=== PATIENT | female | born 1985 | race Caucasian/White ===

== ENCOUNTER 2018-02-16 10:47 | Emergency (ER) | payer OTHER ==
[2018-02-16 10:56] VITALS: BMI 31.1
--- NOTE | 2018-02-16 11:08 | PDOC ---
History of Present Illness - General Chief Complaint: Vaginal Bleeding Stated Complaint: STOIMACH PAIN Time Seen by Provider: 02/16/18 10:59 - History of Present Illness Initial Comments: 02/16/18 11:57 Sapna Bowie is an otherwise healthy 32yo woman who presents with vaginal bleeding and lower abdominal pain since yesterday afternoon. She reports that she had a positive test last week and is likely about 6 weeks . Her LMP was January 02-. Prior to last month, she was taking oral control pills for years. She reports that her period was very regular while taking the pills, and she has not had any menstrual problems in the past. She did have a yeast infection recently with vaginal itching, but she reports that she was prescribed a medication that she has now completed. Her symptoms resolved, and she denies any current abnormal vaginal discharge, itching, pain or odor prior to the current bleeding. She does have one daughter , age 8y, and has not been since that time. Ms Rommel Bowie denies any additional symptoms including fever/chills, lightheadedness, chest pain, SOB, or injury. She requests a sonogram and blood test to confirm her . Past History - Past Medical History Allergies/Adverse Reactions: Allergies Allergy/AdvReac Type Severity Reaction Status Date / Time No Known Allergies Allergy Verified 02/16/18 10:51 Home Medications: Ambulatory Orders Acetaminophen 1,000 mg PO TID PRN #20 tablet 02/16/18 - Suicide/Smoking/Psychosocial Hx Smoking History: Never smoked Hx Alcohol Use: No Drug/Substance Use Hx: No Review of Systems - Review of Systems Comments:: 02/16/18 11:09 General: No fevers, no chills, no weight or appetite change, no malaise HEENT: No changes in vision, no changes in hearing, no congestion, no sore throat CV: No chest pain, no palpitations, no LE edema Pulm: No SOB, no cough, no wheezing GI: No nausea or vomiting, no change in bowel habits, no melena : No frequency, no urgency, no dysuria Musc: No back pain, no joint swelling, no recent injury Skin: No rash, no lesions, no erythema Endo: No excessive thirst, no heat/cold intolerance Heme: No unusual bruising or bleeding, no swollen glands Neuro: No syncope, no numbness/tingling, no focal weakness Vasc: No claudication Psych: No recent change in mood, no SI or HI *Physical Exam - Vital Signs Last Vital Signs Temp Pulse Resp BP Pulse Ox 99.1 F 89 16 131/82 99 02/16/18 10:53 02/16/18 10:53 02/16/18 10:53 02/16/18 10:53 02/16/18 10:53 - Physical Exam Comments: 02/16/18 11:09 General: Comfortable, no acute distress HEENT: PERRL, EOMI, MMM, voice normal, normal neck ROM, no LAD Cards: RRR, no murmur appreciated Pulm: Comfortable on room air, clear to auscultation bilaterally Abd: Soft, nontender, nondistended : No CVA tenderness Pelvic: External exam without any lesions, blood noted at vaginal canal. Moderate blood in vaginal canal. Poorly visualized cervix but no obvious cervical opening. No cervical motion tenderness, no palpable cervical opening on manual exam. Ext: Atraumatic. No LE edema. ROM intact. Strength 5/5 and equal bilaterally Vasc: Extremities WWP. Palpable radial and pedal pulses bilaterally Neuro: A&Ox3, CN grossly intact, normal speech, motor/sensory grossly intact and symmetric Psych: Mood appropriate to situation ED Treatment Course - LABORATORY CBC & Chemistry Diagram: 02/16/18 11:56 02/16/18 11:25 Medical Decision Making - Medical Decision Making 02/16/18 12:15 Sapna Bowie is an otherwise healthy 32yo woman who presents with vaginal bleeding and lower abdominal pain since yesterday; she had a positive urine test at home and reports that she is approximatley 6 weeks with her LMP in early december. - Bleeding may represent a spontaneous . Quantitive HCG pending - CBC, CMP, UA, UCx, urine , Type and screen pending - Transvaginal ultrasound ordered - concern for ectopic - Pelvic exam notable for blood in vaginal canal, but otherwise unremarkable - NS for hydration; IV tylenol for pain 02/16/18 13:47 - Labs returned without indication of infection or anemia, UA negative. Type& Screen pending - Urine positive - HCG 35 - Transvaginal ultrasound with prominent endometrium but no intrauterine ; per report, could indicate very early but ectopic must still be considered - Plan to discharge home with instructions regarding ectopic and reasons to return to the ED. Ms Rommel Bowie will need to be seen in the ED or [facility] for serial HCG monitoring and a repeat ultrasound in 2 days. Will discuss with patient. Waiting for type&screen to determine need for rhogam prior to discharge. 02/16/18 14:47 - Type&Screen returned, blood type O+ - Discussed ectopic and spontaneous with patient and her . They understand the need to return in 2 days for repeat quantitative HCG and repeat ultrasound. Will provide written information in [place] to take home. - Plan to discharge with follow up in [address] Goel. *DC/Admit/Observation/Transfer Diagnosis at time of Disposition: Vaginal bleeding affecting early - Discharge Dispostion Disposition: HOME - Prescriptions Prescriptions: Acetaminophen 1,000 mg PO TID PRN #20 tablet PRN Reason: Pain - Referrals Referrals: Pita Cordova MD [Primary Care Provider] - - Patient Instructions Printed Discharge Instructions: DI for Ectopic , DI for Miscarriage, DI for Threatened Additional Instructions: Instructions: - You were seen in the ED today for vaginal bleeding in early . There was no seen on ultrasound, but your test was positive. - This could be either a possible miscarriage, completed miscarriage, ectopic . - Please return to the ED on Monday or Monday for repeat blood tests and a repeat ultrasound. You may also go to a clinic such as [facility] for these tests. Please bring all your paperwork when you go to your appointment if you decide to go to a clinic. - If you experiece worsening of your vaginal bleeding, significantly increased abdominal pain, especially if the pain worsens acutely. You should also be seen if you have fevers to 101F or shaking chills, change in your vaginal bleeding, or you cannot get a follow up appointment. Print Language: BARBADIAN - Post Discharge Activity
[2018-02-16 11:32] LABS: HEMATOCRIT 41.9 % (32.4-45.2); HEMOGLOBIN 14.2 GM/dL (10.7-15.3); MEAN CELL VOLUME 79.4 fl (80-96); MEAN PLT VOLUME 10.2 fl (7.5-11.1); PLATELET COUNT 190 K/MM3 (134-434); RBC 5.27 M/mm3 (3.60-5.2); RDW 13.8 % (11.6-15.6); WHITE BLOOD COUNT 9.9 K/mm3 (4.0-10.0)
[2018-02-16] MEDS ORDERED: ACETAMINOPHEN 1000 MG/100 ML VIAL (NON FORMULARY) IVPB ONE (11:37)
[2018-02-16] MEDS ORDERED: SODIUM CHLORIDE 0.9% 1000 ML INFUS.BAG IV ONE (11:37)
--- NOTE | 2018-02-16 11:37 | PDOC ---
Attending Attestation - HPI HPI: 02/16/18 12:15 The patient is a 32y year old female, approximately 6 weeks , with no significant past medical history, who presents with vaginal bleeding and lower abdominal pain since yesterday afternoon. She reports her LMP was January 02. She reports that her period was very regular while taking control pills which she reportedly stopped taking a few months ago. She has one daughter, age 8, and has not been since that time. The patient denies chest pain, shortness of breath, headache and dizziness. The patient denies fever, chills, nausea, vomit, diarrhea and constipation. The patient denies dysuria, frequency, urgency and hematuria. <Cristina Garay - Last Filed: 02/16/18 12:15> - Resident Resident Name: Veronika Garcia - ED Attending Attestation I have performed the following: I have examined & evaluated the patient, The case was reviewed & discussed with the resident, I agree w/resident's findings & plan, Exceptions are as noted - HPI HPI: 02/16/18 13:44 6 weeks with vaginal bleeding lower abdominal discomfort No significant rebound guarding on examination We'll check labs transvaginal ultrasound observing reassessed. - Physicial Exam PE: 02/16/18 15:17 agree with residents exam - Medical Decision Making 02/16/18 16:22 No IUP noted on ultrasound. HCG 43 differential diagnosis includes ectopic versus early versus miscarriage. Patient well-appearing no apparent distress no significant abdominal pain. No evidence of ectopic on ultrasound Patient will return in 2 days for repeat sono repeat beta Very strict ectopic return instructions discussed patient. Findings, need for follow-up, strict return instructions discussed with patient. <William Goel - Last Filed: 02/16/18 16:22>
[2018-02-16 11:56] LABS: ALBUMIN 3.7 g/dl (3.4-5.0); ANION GAP 7 (8-16); BILIRUBIN,TOTAL 0.2 mg/dL (0.2-1.0); BLOOD UREA NITROGEN 10 mg/dL (7-18); CALCIUM 9.2 mg/dL (8.5-10.1); CHLORIDE 103 mmol/L (98-107); CO2 29 mmol/L (21-32); CREATININE 0.8 mg/dL (0.55-1.02); GLUCOSE,RANDOM 77 mg/dL (74-106); POTASSIUM 3.9 mmol/L (3.5-5.1); SGOT/AST 26 U/L (15-37); SGPT/ALT 25 U/L (12-78); SODIUM 139 mmol/L (136-145); TOT PROT 7.6 g/dl (6.4-8.2)
[2018-02-16] MEDS ORDERED: ACETAMINOPHEN INJECTION 100 ML IVPB ONE (11:58)
[2018-02-16 11:59] LABS: ALK PHOS 79 U/L (45-117)
[2018-02-16 12:33] LABS: BASO % 0.2 % (0-2.0); EOS % 1.1 % (0-4.5); HEMATOCRIT 41.9 % (32.4-45.2); HEMOGLOBIN 14.2 GM/dL (10.7-15.3); LYMPH % 23.6 % (8-40); MCH 27.2 pg (25.7-33.7); MEAN CELL VOLUME 80.1 fl (80-96); MEAN PLT VOLUME 10.7 fl (7.5-11.1); MONO % 5.6 % (3.8-10.2); NEUT % 69.5 % (42.8-82.8); PLATELET COUNT 188 K/MM3 (134-434); RBC 5.23 M/mm3 (3.60-5.2); RDW 13.8 % (11.6-15.6); WHITE BLOOD COUNT 9.9 K/mm3 (4.0-10.0)
[2018-02-16 12:37] LABS: HCG,QUALITATIVE URINE POSITIVE
[2018-02-16 12:41] LABS: URINE APPEARANCE CLEAR; URINE BILIRUBIN NEGATIVE (<2.0 mg/dL); URINE COLOR LTYELLOW; URINE GLUCOSE (UA) NEGATIVE (NEGATIVE); URINE KETONE NEGATIVE (NEGATIVE); URINE LEUK ESTERASE NEGATIVE (NEGATIVE); URINE NITRITE NEGATIVE (NEGATIVE); URINE PROTEIN NEGATIVE (NEGATIVE); URINE UROBILINOGEN NEGATIVE mg/dL (0.2-1.0)
[2018-02-16 13:04] LABS: EPI CELLS RARE /HPF (FEW); URINE MUCUS RARE
[2018-02-16 13:40] VITALS: BP 116/72; PULSE 79; TEMP 98.2
[2018-02-16] MEDS ORDERED: RHO(D) IMMUNE GLOBULIN 1,500 UNIT DISP.SYRIN IM ONE (14:46)
== END 2018-02-16 15:37 | disposition home or self-care (01) ==
LOC: JER 10:47
DX: O26.891 Other specified pregnancy related conditions, first trimester (principal); O20.8 Other hemorrhage in early pregnancy; Z3A.01 Less than 8 weeks gestation of pregnancy
CPT/HCPCS: 36415; 76830-TC; 80053; 81003; 81015; 84702; 84703; 85025; 85027; 86850; 86900; 86901; 87086; 99283-25; J0131; J7030

== ENCOUNTER 2019-03-28 11:48 | Emergency (ER) | payer OTHER ==
[2019-03-28 12:15] VITALS: BP 134/79; PULSE 89; TEMP 99.1; BMI 31.2
--- NOTE | 2019-03-28 12:48 | PDOC ---
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 Patient came for test and may be ultrasound. Patient has no fever, nausea, vomiting, dysuria, problems with her bowels. Patient last saw her DISHROOM ATTENDANT in May. Patient had a miscarriage last year. GENERAL/CONSTITUTIONAL: No fever, weakness. dizziness HEAD, EYES, EARS, NOSE AND THROAT: No change in vision. No ear pain or discharge. No sore throat. CARDIOVASCULAR: No chest pain RESPIRATORY: No shortness of breath or cough GASTROINTESTINAL: No pain, nausea, vomiting, diarrhea or constipation, + bloating GENITOURINARY: No dysuria MUSCULOSKELETAL: No neck or back pain SKIN: No rash NEUROLOGIC: No headache, vertigo, loss of consciousness, or loss of sensation. GENERAL: The patient is awake, alert, and fully oriented, in no acute distress. HEAD: Normal with no signs of trauma. EYES: Pupils equal, round and reactive to light, sclera anicteric, conjunctiva clear. ENT: pharynx: no erythema, no exudate, uvula midline NECK: supple CHEST: clear, nontender, rr ABD: soft, nontender BACK: no tenderness or signs of injury EXTREMITIES: Normal range of motion, no edema. NEUROLOGICAL: Normal speech, normal gait. SKIN: Warm, Dry Past History - Past Medical History Allergies/Adverse Reactions: Allergies Allergy/AdvReac Type Severity Reaction Status Date / Time No Known Allergies Allergy Verified 03/28/19 12:11 Home Medications: Ambulatory Orders Acetaminophen 1,000 mg PO TID PRN #20 tablet 02/16/18 Cephalexin [Keflex] 1,000 mg PO BID #28 capsule 03/28/19 COPD: No - Surgical History Abdominal Surgery: No Cardiac Surgery: No Cholecystectomy: No Lung Surgery: No - Immunization History Immunization Up to Date: No - Suicide/Smoking/Psychosocial Hx Smoking History: Never smoked Have you smoked in the past 12 months: No Information on smoking cessation initiated: No Hx Alcohol Use: No Drug/Substance Use Hx: No Substance Use Type: None *Physical Exam - Vital Signs Last Vital Signs Temp Pulse Resp BP Pulse Ox 99.1 F 89 17 134/79 100 03/28/19 12:11 03/28/19 12:11 03/28/19 12:11 03/28/19 12:11 03/28/19 12:11 Medical Decision Making - Medical Decision Making 03/28/19 13:54 Healthy 33-year-old G2, P1 who came into the ER asking for test and ultrasound for 4 days of bloating. She had a negative test at home yesterday afternoon. Patient has no fever, nausea, vomiting, dysuria, problems with bowels. Abdominal exam is benign, no pelvic pain. Explained to patient that we will check urine for , and will also check a UA, there is no indication for labs or further workup at this point. test is negative, patient has UTI, will treat. We'll explained to patient the need for follow-up and further evaluation Discussed issues, findings, results, applicable medications and treatments and follow-up. All these were understood and all questions were answered 03/28/19 14:02 *DC/Admit/Observation/Transfer Diagnosis at time of Disposition: UTI (urinary tract infection) Qualifiers: Urinary tract infection type: acute cystitis Hematuria presence: without hematuria Qualified Code(s): N30.00 - Acute cystitis without hematuria - Discharge Dispostion Disposition: HOME Condition at time of disposition: Stable Decision to Admit order: No - Prescriptions Prescriptions: Cephalexin [Keflex] 1,000 mg PO BID #28 capsule - Referrals Referrals: Diamante Negrete MD [Primary Care Provider] - - Patient Instructions Printed Discharge Instructions: Urinary Tract Infection Additional Instructions: Drink 2-3 L of water daily Take the Keflex 1000 mg twice a day for 7 days take Acidophilus to help prevent yeast infection or stomach upset Return ER if fever, vomiting, feeling sicker Follow-up with your doctor in 2-3 days for further evaluation of your symptoms Beber 2-3 L de agua diariamente [place] Keflex 1000 mg dos veces al da rk 7 grajeda. tome Acidophilus para ayudar a prevenir la infeccin por levaduras o malestar estomacal Regrese a la giacomo de emergencias si tiene fiebre, vmitos, se siente ms enfermo Jessica un seguimiento con gavin mdico en 2-3 grajeda para sophie evaluacin adicional de ander sntomas - Post Discharge Activity
[2019-03-28] MEDS ORDERED: MAG HYDROX/AL HYDROX/SIMETH 30 ML UNIT-DOSE CUP PO ONE (13:24)
[2019-03-28] MEDS ORDERED: MAG HYDROX/AL HYDROX/SIMETH 30 ML UNIT-DOSE CUP ONE (13:39)
[2019-03-28 13:53] LABS: HYALINE CASTS 1 /lpf (0-8); PH,URINE 5.5 (5.0-8.0); URINE APPEARANCE CLEAR; URINE BACTERIA 592.4 /hpf (NEGATIVE); URINE BILIRUBIN NEGATIVE (NEGATIVE); URINE COLOR YELLOW; URINE GLUCOSE (UA) NEGATIVE (NEGATIVE); URINE KETONE NEGATIVE (NEGATIVE); URINE LEUK ESTERASE 2+ (NEGATIVE); URINE NITRITE NEGATIVE (NEGATIVE); URINE PROTEIN NEGATIVE (NEGATIVE); URINE RBC 2 /hpf (0-4); URINE UROBILINOGEN 0.2 mg/dL (0.2-1.0); URINE WBC 35 /hpf (0-5)
== END 2019-03-28 14:30 | disposition home or self-care (01) ==
LOC: JERFT 11:48
DX: N30.00 Acute cystitis without hematuria (principal)
CPT/HCPCS: 81003; 84703; 87086; 87186; 99282-25

== ENCOUNTER 2019-10-02 13:32 | Emergency (ER) | payer OTHER ==
[2019-10-02 13:47] VITALS: BMI 32.5
[2019-10-02] MEDS ORDERED: ACETAMINOPHEN 500 MG TABLET (FP) PO ONE (14:25)
--- NOTE | 2019-10-02 14:28 | PDOC ---
History of Present Illness - General Chief Complaint: Respiratory Stated Complaint: 3 MTHS PREG COUGHING/ABD PAIN Time Seen by Provider: 10/02/19 14:13 - History of Present Illness Initial Comments: 10/02/19 14:24 34-year-old female 3 months presents for flulike symptoms x1 day Past History - Past Medical History Allergies/Adverse Reactions: Allergies Allergy/AdvReac Type Severity Reaction Status Date / Time No Known Allergies Allergy Verified 10/02/19 13:47 Home Medications: Ambulatory Orders Acetaminophen 1,000 mg PO TID PRN #20 tablet 02/16/18 Cephalexin [Keflex] 1,000 mg PO BID #28 capsule 03/28/19 Oseltamivir Phosphate [Tamiflu] 75 mg PO BID #10 capsule 10/02/19 COPD: No - Surgical History Abdominal Surgery: No Cardiac Surgery: No Cholecystectomy: No Lung Surgery: No - Immunization History Immunization Up to Date: No - Psycho Social/Smoking Cessation Hx Smoking History: Never smoked Have you smoked in the past 12 months: No Information on smoking cessation initiated: No Hx Alcohol Use: No Drug/Substance Use Hx: No Substance Use Type: None Review of Systems - Review of Systems Constitutional: Yes: Fever HEENTM: Yes: Nose Congestion Respiratory: Yes: Cough *Physical Exam - Vital Signs Last Vital Signs Temp Pulse Resp BP Pulse Ox 100.3 F H 128 H 20 132/75 100 10/02/19 13:41 10/02/19 13:41 10/02/19 13:41 10/02/19 13:41 10/02/19 13:41 - Physical Exam 10/02/19 14:24 GENERAL: The patient is awake, alert, and fully oriented, in no acute distress. HEAD: Normal with no signs of trauma. EYES: sclera anicteric, conjunctiva clear. ENT: Ears normal tympanic membranes normal oropharynx clear uvula midline NECK: Normal range of motion LUNGS: Breath sounds equal, clear to auscultation bilaterally. No wheezes, and no crackles. HEART: S1 and S2 without murmur, rub or gallop. ABDOMEN: Soft, nontender, normoactive bowel sounds. No guarding, no rebound. No masses. EXTREMITIES: Normal range of motion, no edema. No clubbing or cyanosis. No cords, erythema, or tenderness. NEUROLOGICAL: Cranial nerves II through XII grossly intact. PSYCH: Normal mood, normal affect. SKIN: Warm, Dry, normal turgor, no rashes or lesions noted. Medical Decision Making - Medical Decision Making 10/02/19 14:24 We will treat for influenza based on timeframe symptoms and . I have reviewed the pathophysiology with the patient. They are in agreement with the treatment plan all questions were answered to their satisfaction. Understanding for follow-up without fail was also conveyed to the patient. Again they are in agreement. Discharge - Discharge Information Problems reviewed: Yes Clinical Impression/Diagnosis: Flu-like symptoms Condition: Stable Disposition: HOME - Admission No - Additional Discharge Information Prescriptions: Oseltamivir Phosphate [Tamiflu] 75 mg PO BID #10 capsule - Follow up/Referral Referrals: Xena Ruvalcaba MD [Staff Physician] - - Patient Discharge Instructions Additional Instructions: Tylenol Motrin as directed for fever and body aches. Return to the emergency room for worsening symptoms and without fail follow-up with your primary care physician in 1 to 2 days for further evaluation and treatment options. Please take the Tamiflu as directed. It is very important for you to stay on top of the fever Tylenol [id number] as discussed. Getting a high fever in can injure your baby and cause . It is very important for you to follow-up with your freight car repairer and tail trimmer in 1 to 2 days for further evaluation and treatment options. Tylenol Motrin segn las indicaciones para fiebre y mily corporales. Regrese a la giacomo de emergencias para empeorar los sntomas y, sin falta, ciara un seguimiento con gavin mdico de atencin primaria en 1 a 2 grajeda para obtener ms opciones de evaluacin y tratamiento. Por favor tome el Tamiflu wilda se le indique. Es muy importante que se mantenga al tanto de la fiebre Tylenol las 24 horas del da, wilda se discuti. Tener fiebre candelaria en el embarazo puede daar a gavin beb y causar la muerte . Es muy importante que realice un seguimiento con gavin obstetra y gineclogo en 1 o 2 grajeda para obtener ms opciones de evaluacin y tratamiento. - Post Discharge Activity
[2019-10-02] MEDS ORDERED: ACETAMINOPHEN 500 MG TABLET (FP) ONE (14:43)
[2019-10-02] MEDS ORDERED: SODIUM CHLORIDE 0.9% 500 ML INFUS.BAG IV ONE ×2 (16:43→17:54)
[2019-10-02] MEDS ORDERED: LACTATED RINGERS SOLUTION 1000 ML INFUS.BAG IV ONE (19:13)
[2019-10-02 19:52] VITALS: TEMP 98.5
--- NOTE | 2019-10-02 21:06 | PDOC ---
*Physical Exam - Vital Signs Last Vital Signs Temp Pulse Resp BP Pulse Ox 98.5 F 112 H 16 118/62 100 10/02/19 17:45 10/02/19 19:00 10/02/19 19:00 10/02/19 19:00 10/02/19 19:00 - Physical Exam General Appearance: Yes: Nourished, Appropriately Dressed. No: Apparent Distress HEENT: positive: EOMI, CATIA, TMs Normal, Pharynx Normal Neck: positive: Trachea midline, Supple. negative: Tender, Rigid Respiratory/Chest: positive: Lungs Clear, Normal Breath Sounds. negative: Respiratory Distress, Accessory Muscle Use, Crackles, Rales, Rhonchi, Stridor Cardiovascular: positive: Regular Rhythm, S1, S2 (present), Tachycardia. negative: Murmur ED Treatment Course - LABORATORY CBC & Chemistry Diagram: 10/02/19 21:10 10/02/19 21:10 - RADIOLOGY Radiology Studies Ordered: Category Date Time Status DUPLEX VASCUL [id number] [US] Stat Ultrasound 10/02/19 21:02 Ordered - Medications Given in the ED: ED Medications Discontinued Medications Generic Name Dose Route Start Last Admin Trade Name Freq PRN Reason Stop Dose Admin Acetaminophen 1,000 mg 10/02/19 14:25 10/02/19 14:45 Tylenol - PO 10/02/19 14:26 1,000 mg ONCE ONE Administration Lactated Ringer's 1,000 ml 10/02/19 19:13 10/02/19 19:15 Lactated Ringers Solution IV 10/02/19 19:14 1,000 ml ONCE ONE Administration Sodium Chloride 1,000 ml 10/02/19 16:43 10/02/19 17:01 Normal Saline - IV 10/02/19 16:44 1,000 ml ONCE ONE Administration Sodium Chloride 1,000 ml 10/02/19 17:54 10/02/19 18:00 Normal Saline - IV 10/02/19 17:55 1,000 ml ONCE ONE Administration Medical Decision Making - Medical Decision Making 10/02/19 21:03 Patient signed out to me by NOHEMI Trevino from [email or web address]. Patient presented for generalized body aches, cough and fever. She was upgraded to the main ER for persistent tachycardia despite fluids and Tylenol. Last heart rate in the 130s Basic labs, duplex ultrasound ordered. Reevaluate 10/03/19 00:37 Labs with normal WBC, left shift likely viral Duplex negative for DVT Pending urine, 10/03/19 02:07 Urine is negative Given shift, will also place pt on a z-pack for her upper respiratory symptoms DC home at this time Return precautions given Pt understands all of the discharge instructions and all questions were answered. Pt feels comfortable with discharge planning. Discharge - Discharge Information Problems reviewed: Yes Clinical Impression/Diagnosis: Flu-like symptoms Condition: Stable Disposition: HOME - Admission No - Additional Discharge Information Prescriptions: Oseltamivir Phosphate [Tamiflu] 75 mg PO BID #10 capsule - Follow up/Referral Referrals: Xena Ruvalcaba MD [Staff Physician] - - Patient Discharge Instructions Additional Instructions: You were evaluated for your cough and body aches today. Your blood work showed you may have an infection likely from your cough. You may also have the flu. Take Tylenol as directed for fever and body aches. Return to the emergency room for worsening symptoms and without fail follow-up with your primary care physician in 1 to 2 days for further evaluation and treatment options. Please take the Tamiflu and azithromycin as directed. It is very important for you to stay on top of the fever Tylenol [id number] as discussed. Getting a high fever in can injure your baby and cause . It is very important for you to follow-up with your air moving technician and 3d modeler in 1 to 2 days for further evaluation and treatment options. Return to the ER if you have difficulty breathing, shortness of breath, vomiting , vaginal bleeding, chest pain, high fevers that do not get better with tylenol or if you have any changes in your symptoms Usted fue evaluado por fournier tos y mily corporales hoy. Fournier anlisis de yusuf mostr que puede tener sophie infeccin probable por fournier tos. Tambin puede tener gripe. [place] Tylenol segn las indicaciones para la fiebre y los mily corporales. Regrese a la giacomo de emergencias para empeorar los sntomas y, sin falta, ciara un seguimiento con fournier mdico de atencin primaria en 1 a 2 grajeda para obtener ms opciones de evaluacin y tratamiento. [place] Tamiflu y azitromicina segn las indicaciones. Es muy importante que se mantenga al tanto de la fiebre Tylenol las 24 horas del da, wilda se discuti. Tener fiebre candelaria en el embarazo puede daar a fournier beb y causar la muerte . Es muy importante que realice un seguimiento con fournier obstetra y gineclogo en 1 o 2 grajeda para obtener ms opciones de evaluacin y tratamiento. Regrese a la giacomo de emergencias si tiene dificultad para respirar, falta de aliento, vmitos, sangrado vaginal, dolor en el pecho, fiebre candelaria que no mejora con tylenol o si tiene algn cambio en ander sntomas. - Post Discharge Activity Work/Back to School Note: Back to Work
[2019-10-02] MEDS ORDERED: ACETAMINOPHEN 1000 MG/100 ML VIAL (NON FORMULARY) IVPB ONE (22:01)
[2019-10-02] MEDS ORDERED: ACETAMINOPHEN INJECTION 100 ML IVPB ONE (22:22)
[2019-10-02 22:38] LABS: BASO % 0.3 % (0-2.0); EOS % 0.6 % (0-4.5); HEMATOCRIT 37.5 % (32.4-45.2); HEMOGLOBIN 12.9 GM/dL (10.7-15.3); LYMPH % 6.4 % (8-40); MCH 27.3 pg (25.7-33.7); MCHC 34.4 g/dl (32.0-36.0); MEAN CELL VOLUME 79.3 fl (80-96); MEAN PLT VOLUME 10.4 fl (7.5-11.1); MONO % 6.1 % (3.8-10.2); NEUT % 86.6 % (42.8-82.8); PLATELET COUNT 168 K/MM3 (134-434); RBC 4.73 M/mm3 (3.60-5.2); RDW 14.2 % (11.6-15.6)
[2019-10-02 22:58] LABS: INR 1.04 (0.83-1.09); PROTHROMBIN TIME (PATIENT) 12.3 SEC (9.7-13.0)
[2019-10-02 23:29] LABS: BILIRUBIN,TOTAL 0.2 mg/dL (0.2-1); BLOOD UREA NITROGEN 7.2 mg/dL (7-18); CALCIUM 8.7 mg/dL (8.5-10.1); CREATININE 0.7 mg/dL (0.55-1.3); POTASSIUM 3.6 mmol/L (3.5-5.1); TOT PROT 6.7 g/dl (6.4-8.2)
[2019-10-03 02:01] LABS: URINE APPEARANCE CLEAR; URINE BILIRUBIN NEGATIVE (NEGATIVE); URINE COLOR YELLOW; URINE GLUCOSE (UA) NEGATIVE (NEGATIVE); URINE KETONE NEGATIVE (NEGATIVE); URINE PROTEIN NEGATIVE (NEGATIVE)
[2019-10-03 02:02] LABS: URINE LEUK ESTERASE NEGATIVE (NEGATIVE); URINE NITRITE NEGATIVE (NEGATIVE); URINE UROBILINOGEN 0.2 mg/dL (0.2-1.0)
[2019-10-03 03:35] VITALS: BP 112/68; PULSE 98
== END 2019-10-03 03:38 | disposition home or self-care (01) ==
LOC: JERFT 13:32 → JER 13:32
PROC: 3E0337Z Introduction of Electrolytic and Water Balance Substance into Peripheral Vein, Percutaneous Approach (ICD-10-PCS; principal; 2019-10-02)
PROC: 3E033NZ Introduction of Analgesics, Hypnotics, Sedatives into Peripheral Vein, Percutaneous Approach (ICD-10-PCS; 2019-10-02)
DX: J11.1 Influenza due to unidentified influenza virus with other respiratory manifestations (principal)
CPT/HCPCS: 36415; 80053; 81003; 83605; 84443; 84702; 85025; 85610; 87086; 87804; 93970-TC; 99285-25; J0131

== ENCOUNTER 2020-05-05 11:35 | Inpatient (IN) | payer OTHER ==
[2020-05-05 13:07] VITALS: BMI 33.0
[2020-05-05 13:14] LABS: BASO % 0.2 % (0-2.0); EOS % 1.2 % (0-4.5); HEMATOCRIT 37.6 % (32.4-45.2); HEMOGLOBIN 12.8 GM/dL (10.7-15.3); LYMPH % 19.1 % (8-40); MCH 28.1 pg (25.7-33.7); MCHC 33.9 g/dl (32.0-36.0); MEAN PLT VOLUME 10.6 fl (7.5-11.1); MONO % 4.9 % (3.8-10.2); NEUT % 74.6 % (42.8-82.8); PLATELET COUNT 148 K/MM3 (134-434); RBC 4.53 M/mm3 (3.60-5.2); RDW 14.4 % (11.6-15.6); WHITE BLOOD COUNT 9.4 K/mm3 (4.0-10.0)
[2020-05-05 13:21] LABS: INR 0.95 (0.83-1.09); PROTHROMBIN TIME (PATIENT) 11.2 SEC (9.7-13.0)
[2020-05-05 13:36] LABS: BLOOD UREA NITROGEN 7.5 mg/dL (7-18); CALCIUM 9.3 mg/dL (8.5-10.1); CREATININE 0.6 mg/dL (0.55-1.3); POTASSIUM 3.9 mmol/L (3.5-5.1)
[2020-05-05] MEDS: ELECTROLYTE-148 SOLN 1,000 ML IV SCH (15:30)
[2020-05-05] MEDS ORDERED: DINOPROSTONE 10 MG VAGINAL SUPPOSITORY VG ONE (16:20)
--- NOTE | 2020-05-05 16:41 | PD.OB.PROG ---
Past Medical History - Primary Care Physician PCP:: Estefanía Haywood Documenting Provider Type: Laborist - Admission Chief Complaint: none History of Present Illness: asked by Dr. Haywood to place cervidil for this post date iol, GBS + for abx in labor History Source: Patient Limitations to Obtaining History: Language Barrier - Nursing Documentation Maternal Triage Index: Maternal Triage Index ( Priority 5, Requesting MFTI) Hemorrhage Risk Assessment: Risk Level Low Risk High Level Risk Factors for None Hemorrhage Medium Level Risk Factors for None of the above Hemorrhage Low Level Risk Factors for None of the above Hemorrhage Nursing Documentation Reviewed: Yes - Past Medical History ...: 3 ...Para: 1 ...Term: 1 ...: 0 ...Spon : 1 ...Induced : 0 ...Living Children: 1 ...Multiple Gestation: 0 ...LMP: 07/25/19 ... Weeks Gestation by Dates: 40.5 ...EDC by Dates: 04/30/20 ...EDC by Sono: 04/30/20 - Past Surgical History Past Surgical History: Yes: None - Smoking History Smoking history: Never smoked Have you smoked in the past 12 months: No - Alcohol/Substance Use Hx Alcohol Use: No Physical Exam - Obstetrical Vital Signs: Vital Signs Temperature 98.0 F 05/05/20 12:55 Pulse Rate 84 05/05/20 14:00 Respiratory Rate 20 05/05/20 14:00 Blood Pressure 115/83 05/05/20 14:00 O2 Sat by Pulse Oximetry (%) 100 05/05/20 14:00 - Abdominal Exam/OB Number of Fetuses: Single Presentation: Vertex Regularity: Irritability Category: I - Vaginal Exam/OB Dilatation (cm): c/l/p - Labs Lab Results: CBC, BMP 05/05/20 12:48 05/05/20 12:48 Assessment/Plan 35 y/o at 40+ wks admitted for iol cervidil placed as per pmd request. for GBS prophylaxis in labor
[2020-05-05] MEDS ORDERED: SODIUM PHOSPHATE/NA BIPHOS 133 ML ENEMA PR ONE (17:52)
--- NOTE | 2020-05-05 19:03 | HP ---
Past Medical History - Primary Care Physician PCP:: Estefanía Haywood - Admission Chief Complaint: 35 yrs 40.5/7 weeks admitted for induction of labor History of Present Illness: pnc at , [facility] wt gain panel : 09/24/19 O Pos, rubella immune, hbsag neg , hep cnr, hiv neg, Tpallidum neg , sickle cell trait pos , gc/ct neg 02/17/20 h/h10.7/31.6, [id number] hepc nr, hiv neg, t pallidum neg, 1 hrgtt 144 02/25/20 3 hr GTT 70/165/158/126 wnl 04/08/20 marcel pos, Bv pos : pt treated by vaginal cream , gc/ct neg GBS POS MFM US done by mfm at [facility] no genetic screening done Last us 04/30/20 40 wks, maryellen 13.0, efw 6'11" ( 53 %tile) , History Source: Patient, Medical Record Limitations to Obtaining History: No Limitations - Past Medical History 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 Weeks Gestation by Dates: 40.5 ...EDC by Dates: 04/30/20 ...EDC by Sono: 04/30/20 Infectious Disease: No: AIDS, HIV, STD's, Tuberculosis Psych: No: Addictions, Anxiety, Bipolar, Depression, Panic, Psychosis, Schizophrenia, Other - Past Surgical History Past Surgical History: Yes: None Hx Myomectomy: No Hx Transabdominal Cerclage: No - Smoking History Smoking history: Never smoked Have you smoked in the past 12 months: No - Alcohol/Substance Use Hx Alcohol Use: No History of Substance Use: reports: None - Social History History of Recent Travel: No Home Medications - Allergies Allergies/Adverse Reactions: Allergies Allergy/AdvReac Type Severity Reaction Status Date / Time No Known Allergies Allergy Verified 05/05/20 12:53 - Home Medications Home Medications: Ambulatory Orders Vitamins (Sjr) - 1 tab PO DAILY 05/03/20 Physical Exam - Maternity Vital Signs: Vital Signs Temperature 98.5 F 05/05/20 17:00 Pulse Rate 100 H 05/05/20 17:00 Respiratory Rate 20 05/05/20 17:00 Blood Pressure 122/85 05/05/20 17:00 O2 Sat by Pulse Oximetry (%) 100 05/05/20 17:00 Selected Entries 05/05/20 05/05/20 05/05/20 12:55 14:00 15:00 Blood Pressure 128/79 115/83 132/78 Blood Pressure Mean Weight 205 lb 05/05/20 16:00 Blood Pressure Blood Pressure 130/81 Mean Weight Constitutional: Yes: Well Nourished, Obese Eyes: Yes: WNL HENT: Yes: WNL Neck: Yes: WNL Cardiovascular: Yes: WNL Lungs: Clear to auscultation Breast(s): Yes: WNL - Abdominal Exam/OB Fundal Height: 38 Number of Fetuses: Single Presentation: Vertex Contractions: Yes Regularity: Irregular Intensity: Unaware Monitor Mode: External Heart Rate (range): 140-145 Heart Rate Location: [facility] Category: I Accelerations: Uniform - Vaginal Exam/OB Vaginal Bleeding: No Speculum Exam: No Dilatation (cm): close Effacement (%): unefface Amniotic Membrane Status: Intact Presentation: Vertex/Position Station: -3 - Physical Exam Musculoskeletal: Yes: WNL Extremities: Yes: WNL. No: Calf Tenderness Edema: Yes Edema: LLE: 1+, RLE: 1+ Integumentary: Yes: Tattoos Deep Tendon Reflex Grade: Normal +2 ...Motor Strength: WNL Psychiatric: Yes: WNL, Alert, Oriented - Labs Lab Results: CBC, BMP 05/05/20 12:48 05/05/20 12:48 Laboratory Tests 05/05/20 05/05/20 05/05/20 12:48 12:48 12:48 PT with INR 11.20 INR 0.95 PTT (Actin FS) 27.0 Syphilis Serology Non-reactive Blood Type O POSITIVE Antibody Screen Negative Problem List - Problems (1) Post-term , 40-42 weeks of gestation Code(s): O48.0 - POST-TERM (2) Encounter for elective induction of labor Code(s): Z34.90 - ENCNTR FOR SUPRVSN OF NORMAL , UNSP, UNSP TRIMESTER (3) Positive GBS test Code(s): B95.1 - STREPTOCOCCUS, GROUP B, CAUSING DISEASES CLASSD ELSWHR Assessment/Plan 35 yrs ) AMA, , 40.5 weeks requets for induction of labor Plan cervidil induction started at 4.25 PM gbs prophylaxis trial vaginal delivery
--- NOTE | 2020-05-06 04:44 | PN ---
Progress Note (short form) - Note Progress Note: 4.30aM cervidil removed cx post, FT. 50 %. NV , Vx -3 uc q2-10 min mild , irregular fhr 140-150 cat-1 Plan shower 2nd crvidil to be placed Selected Entries 05/06/20 05/06/20 00:00 03:00 Temperature 98.1 F 97.9 F Pulse Rate 85 94 H Blood Pressure 121/79 135/83 Problem List - Problems (1) Post-term , 40-42 weeks of gestation Code(s): O48.0 - POST-TERM (2) Encounter for elective induction of labor Code(s): Z34.90 - ENCNTR FOR SUPRVSN OF NORMAL , UNSP, UNSP TRIMESTER (3) Positive GBS test Code(s): B95.1 - STREPTOCOCCUS, GROUP B, CAUSING DISEASES CLASSD ELSWHR
[2020-05-06] MEDS ORDERED: DINOPROSTONE 10 MG VAGINAL SUPPOSITORY VG ONE ×2 (06:00→14:06)
--- NOTE | 2020-05-06 06:38 | PN ---
Progress Note (short form) - Note Progress Note: 6.00 AM Cervidl 2nd placed in vagina uc irregular, infrequent . FHR 140-145 cat-1 Plan I will hand over management of labor to Dr Morrissey operations asst at 8.00 AM Problem List - Problems (1) Post-term , 40-42 weeks of gestation Code(s): O48.0 - POST-TERM (2) Encounter for elective induction of labor Code(s): Z34.90 - ENCNTR FOR SUPRVSN OF NORMAL , UNSP, UNSP TRIMESTER (3) Positive GBS test Code(s): B95.1 - STREPTOCOCCUS, GROUP B, CAUSING DISEASES CLASSD ELSWHR
--- NOTE | 2020-05-06 13:40 | PN ---
Ante-Partal Exam - Subjective Subjective: Patient examined due to cervidil falling out prematurely. She was counseled r egarding IOL and all questions answered Vital Signs: Vital Signs Temperature 98.6 F 05/06/20 13:00 Pulse Rate 94 H 05/06/20 13:00 Respiratory Rate 18 05/06/20 13:00 Blood Pressure 127/81 05/06/20 13:00 O2 Sat by Pulse Oximetry (%) 100 05/06/20 13:00 Bleeding: No Headache: No Visual changes: No Right upper quadrant pain: No - Contractions Contractions: Yes Regularity: Irregular Intensity: Mild Monitor Mode: External - Exam during Labor Heart Rate: 145 Variability: Moderate Category: I Monitor Accelerations: Present Monitor Decelerations: None Exam: Vaginal Dilatation (cm): 1 Effacement (%): 40 Amniotic Membrane Status: Intact Presentation: Vertex Station: -3 Remarks: cervidil placed in vaginal vault - Assessment/Plan Assessment/Plan: 35 y/o P1 @ 40.6wks, IOL at term, reassuring status, stable maternal condition, cervidil replaced, pain control options discussed. -Continue induction -Pain control PRN
[2020-05-06] MEDS: ELECTROLYTE-148 SOLN 1,000 ML IV SCH ×2 (14:30→21:25)
[2020-05-06] MEDS ORDERED: AMPICILLIN - 2 GM in SODIUM CHLORIDE 100 ML IVPB ONE (14:40)
[2020-05-06] MEDS ORDERED: BUTORPHANOL TARTRATE 1 MG/ML VIAL IVPB ONE (14:41)
[2020-05-06] MEDS ORDERED: PROMETHAZINE HCL 25 MG/1 ML VIAL IVPB PRN (14:41)
--- NOTE | 2020-05-06 14:43 | PN ---
Progress Note, Labor Vaginal Exam #1 Labor Exam Date: 05/06/20 Labor Exam Time: 14:42 Heart Rate (range): Cat I Dilatation: 2 Effacement (%): 50 Amniotic Membrane Status: Intact Presentation: Vertex/Position Station: -3 Remarks: Assuming care of this patient Cervidil removed Sanchez bulb inserted Will start Amp for GBS positive Will start Pitocin in 30-60 mins Stadol daily Ariza MD
[2020-05-06] MEDS ORDERED: OXYTOCIN 30 UNITS in 0.9% NS 30 UNIT/500 ML INFUS.BAG IVPB SCH (14:45)
[2020-05-06] MEDS ORDERED: AMPICILLIN SODIUM 2 GM VIAL ONE (14:53)
[2020-05-06] MEDS ORDERED: OXYTOCIN 30 UNITS in 0.9% NS 30 UNIT/500 ML INFUS.BAG IVPB ONE (14:54)
[2020-05-06] MEDS ORDERED: BUTORPHANOL TARTRATE 2 MG/ML VIAL ONE (15:30)
[2020-05-06] MEDS ORDERED: PROMETHAZINE HCL 25 MG/1 ML VIAL ONE (15:30)
[2020-05-06] MEDS ORDERED: AMPICILLIN SODIUM 1 GM VIAL ONE ×2 (18:00→22:41)
[2020-05-06] MEDS: AMPICILLIN - 1 GM in SODIUM CHLORIDE 100 ML IVPB SCH ×2 (18:55→22:30)
[2020-05-06] MEDS ORDERED: PCA PUMP NR ONE (20:20)
[2020-05-06] MEDS ORDERED: FENTANYL/BUPIVACAINE/NS/PF - PCEA - 50 ML DISP.SYRIN EP ONE (20:21)
--- NOTE | 2020-05-06 20:22 | PN ---
Progress Note, Labor Vaginal Exam #2 Labor Exam Date: 05/06/20 Labor Exam Time: 20:21 Heart Rate (range): Cat II Dilatation: 5 Effacement (%): 70 Amniotic Membrane Status: Intact Presentation: Vertex/Position Station: -2 Remarks: Pt very uncomfortable now, likely contributing to increased BP Sanchez bulb out 5cm Will get epidural, reassess BP thereafter AROM next check Yadira Ariza MD
[2020-05-06] MEDS ORDERED: BUPIVACAINE HCL/PF 0.25% (2.5MG/ML) 10 ML VIAL ONE (20:25)
[2020-05-06] MEDS ORDERED: NALOXONE HCL 0.4 MG/ML VIAL IVPUSH PRN (20:58)
[2020-05-06] MEDS ORDERED: FENTANYL/BUPIVACAINE/NS/PF - PCEA - 50 ML DISP.SYRIN EP SCH (21:00)
[2020-05-06] MEDS ORDERED: OXYTOCIN 20 UNITS in 0.9% NS 20 UNIT/1,000 ML INFUS.BAG IV ONE (22:40)
[2020-05-06] MEDS ORDERED: LIDOCAINE HCL 1% PRESERVATIVE FREE - 30ML VIAL ONE (22:41)
--- NOTE | 2020-05-06 22:41 | PN ---
Progress Note, Labor Vaginal Exam #2 Labor Exam Date: 05/06/20 Labor Exam Time: 22:41 Heart Rate (range): Cat I Dilatation: 10 Effacement (%): 100 Amniotic Membrane Status: Intact Presentation: Vertex/Position Station: +2 Remarks: Start pushing Anticipate MONTEZ Ariza MD
[2020-05-06] MEDS ORDERED: WITCH HAZEL 50% (TUCKS) 40 PAD/JAR PAD TP PRN (23:11)
[2020-05-06] MEDS ORDERED: BISACODYL 10 MG SUPP.RECT RC PRN (23:11)
[2020-05-06] MEDS ORDERED: METHYLERGONOVINE MALEATE 0.2 MG/1 ML AMP IM PRN (23:11)
[2020-05-06] MEDS ORDERED: BENZOCAINE 28 GM HEMORRHOIDAL OINTMENT TP PRN (23:11)
[2020-05-06] MEDS ORDERED: BENZOCAINE 20% 57 GM BOTTLE TP PRN (23:11)
--- NOTE | 2020-05-06 23:11 | PN ---
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 40 week . Epidural anesthesia. Nuchal x 1, loose and delivered through. No meconium. Spontaneous delivery of anterior shoulder. placed on mother's abdomen. Cord clamped and cut. Weight pending to allow skin to skin. Apgars 9/9. Spontaneous delivery of intact placenta with 3VC. Fundus firm. Perineum inspected, small bleeding Left periurethral laceration noted and repaired with 3-0 vicryl with hemostasis noted after. EBL 350ml. Mother and baby doing well. Niurka Ariza MD
[2020-05-06] MEDS: OXYTOCIN 20 UNITS in 0.9% NS 20 UNIT/1,000 ML INFUS.BAG IV SCH (23:32)
[2020-05-07] MEDS: ELECTROLYTE-148 SOLN 1,000 ML IV SCH (01:57)
[2020-05-07] MEDS: OXYTOCIN 20 UNITS in 0.9% NS 20 UNIT/1,000 ML INFUS.BAG IV SCH ×2 (06:38→23:22)
--- NOTE | 2020-05-07 07:08 | PN ---
Post Progress Note Type of Delivery: Vital Signs: Vital Signs Temperature 98.3 F 05/07/20 06:00 Pulse Rate 98 H 05/07/20 06:00 Respiratory Rate 18 05/07/20 06:00 Blood Pressure 119/81 05/07/20 06:00 O2 Sat by Pulse Oximetry (%) 100 05/07/20 00:30 Uterus: Yes: Fundus below umbilicus Incision: Yes: Dressing dry and intact Abdomen/GI: Yes: Abdomen soft, Passing flatus, Tolerating PO Lochia: Yes: Rubra Lochia, amount: Small Extremities: Yes: Calves non-tender Perineum: Yes: Laceration Activity: Ambulating - Labs Labs: CBC WBC 9.4 K/mm3 (4.0-10.0) 05/05/20 12:48 RBC 4.53 M/mm3 (3.60-5.2) 05/05/20 12:48 Hgb 12.8 GM/dL (10.7-15.3) 05/05/20 12:48 Hct 37.6 % (32.4-45.2) 05/05/20 12:48 MCV 83.0 fl (80-96) 05/05/20 12:48 MCH 28.1 pg (25.7-33.7) 05/05/20 12:48 MCHC 33.9 g/dl (32.0-36.0) 05/05/20 12:48 RDW 14.4 % (11.6-15.6) 05/05/20 12:48 Plt Count 148 K/MM3 (134-434) 05/05/20 12:48 MPV 10.6 fl (7.5-11.1) 05/05/20 12:48 Absolute Neuts (auto) 7.0 K/mm3 (1.5-8.0) 05/05/20 12:48 Neutrophils % 74.6 % (42.8-82.8) 05/05/20 12:48 Lymphocytes % 19.1 % (8-40) D 05/05/20 12:48 Monocytes % 4.9 % (3.8-10.2) 05/05/20 12:48 Eosinophils % 1.2 % (0-4.5) D 05/05/20 12:48 Basophils % 0.2 % (0-2.0) 05/05/20 12:48 Nucleated RBC % 0 % (0-0) 05/05/20 12:48 Assessment/Plan 35yo s/p , PPD#1 Routine PP care OOB, ambulate F/U AM labs D/C to home PPD#2 given late delivery yesterday Yadira Ariza MD
[2020-05-07 08:14] LABS: BASO % 0.4 % (0-2.0); EOS % 0.2 % (0-4.5); HEMATOCRIT 36.2 % (32.4-45.2); HEMOGLOBIN 12.3 GM/dL (10.7-15.3); LYMPH % 12.2 % (8-40); MCH 28.1 pg (25.7-33.7); MCHC 33.9 g/dl (32.0-36.0); MEAN CELL VOLUME 82.9 fl (80-96); MEAN PLT VOLUME 10.1 fl (7.5-11.1); MONO % 5.6 % (3.8-10.2); NEUT % 81.6 % (42.8-82.8); PLATELET COUNT 148 K/MM3 (134-434); RBC 4.37 M/mm3 (3.60-5.2); RDW 14.4 % (11.6-15.6); WHITE BLOOD COUNT 13.3 K/mm3 (4.0-10.0)
[2020-05-07] MEDS: IBUPROFEN 600 MG TABLET (FP) PO PRN ×2 (08:51→22:07)
[2020-05-07] MEDS: ACETAMINOPHEN 325 MG TABLET (FP) PO PRN ×2 (08:52→22:07)
[2020-05-07] MEDS: PRENATAL VITAMINS W/ FOLIC ACID TABLET (FP) PO SCH (09:17)
[2020-05-07] MEDS ORDERED: SENNOSIDES/DOCUSATE COMBO (SENNA PLUS) TABLET (UD) PO PRN (22:00)
--- NOTE | 2020-05-08 07:22 | DS ---
Physical Exam-MANAGER PRACTICE Vital Signs: Vital Signs Temperature 97.8 F 05/07/20 22:00 Pulse Rate 79 05/07/20 22:00 Respiratory Rate 18 05/07/20 22:00 Blood Pressure 116/76 05/07/20 22:00 O2 Sat by Pulse Oximetry (%) 100 05/07/20 22:00 Constitutional: Yes: Well Nourished, No Distress, Calm Eyes: Yes: WNL, Conjunctiva Clear, EOM Intact HENT: Yes: WNL, Atraumatic, Normocephalic Neck: Yes: WNL, Supple, Trachea Midline Cardiovascular: Yes: WNL, Regular Rate and Rhythm Respiratory: Yes: WNL, Regular, CTA Bilaterally Gastrointestinal: Yes: WNL ...Rectal Exam: Yes: WNL Renal/: Yes: WNL ....Post : Yes: Uterus firm, Uterus non-tender, Slight lochia rubra Breast(s): Yes: WNL Musculoskeletal: Yes: WNL Extremities: Yes: WNL Edema: No Integumentary: Yes: WNL Neurological: Yes: WNL, Alert, Oriented ...Motor Strength: WNL Psychiatric: Yes: WNL, Alert, Oriented Labs: CBC, BMP 05/07/20 07:57 05/05/20 12:48 Delivery - Delivery Vaginal Delivery: Spontaneous Type of Anesthesia: Epidural Episiotomy/Laceration: Periurethral Extnsion/lac EBL (cc): 350 Delivery, Single - Stages of Labor Date 1st Stage Initiatied: 05/06/20 Time 1st Stage Initiated: 15:00 Date 2nd Stage Initiated: 05/06/20 Time 2nd Stage Initiated: 19:30 Date of Delivery: 05/06/20 Time of Delivery: 22:53 Time Placenta Delivered: 22:54 Placenta: Yes: Spontaneous - Condition of Nursing Home Admissions Director/Fishing Vessel Captain Present: No Infant Gender: Male Weight: 6 lb 14 oz Position: Right, OA Total Hours ROM (Hrs/Mins): 2 mins - 1 Minute Total Score: 9 5 Minutes Total Score: 8 - Arthur Feeding Plan Initial Plan: Elected not to breastfeed exclusively throughout hospitalization Discharge Summary Problems reviewed: Yes Reason For Visit: INDUCTION OF LABOR Current Active Problems Encounter for elective induction of labor (Acute) Positive GBS test (Acute) Post-term , 40-42 weeks of gestation (Acute) Hospital Course: no complication Plan of Treatment: follow up [facility] 4 weeks Condition: Stable - Instructions Diet, Activity, Other Instructions: Regular Diet Follow up in 4 weeks for your visit Referrals: Niurka Ariza MD [Staff Physician] - Disposition: HOME - Home Medications Comprehensive Discharge Medication List: Ambulatory Orders Vitamins (Sjr) - 1 tab PO DAILY 05/03/20 Breast Pump 1 each MC 5XD 30 Days #1 each 05/07/20 Ibuprofen 600 mg PO Q6H PRN #30 tablet 05/07/20
[2020-05-08 09:49] VITALS: BP 135/73; PULSE 84; TEMP 98.4
[2020-05-08] MEDS: PRENATAL VITAMINS W/ FOLIC ACID TABLET (FP) PO SCH (10:31)
== END 2020-05-08 12:40 | disposition home or self-care (01) | DRG 560 ==
LOC: JLDR 11:35 → J3W 05-07 01:12
PROVIDERS: ADMIT Obstetrics & Gynecology; ATTEND Obstetrics & Gynecology
PROC: 3E0P7VZ Introduction of Hormone into Female Reproductive, Via Natural or Artificial Opening (ICD-10-PCS; 2020-05-05)
PROC: 10E0XZZ Delivery of Products of Conception, External Approach (ICD-10-PCS; principal; 2020-05-06)
PROC: 0HQ9XZZ Repair Perineum Skin, External Approach (ICD-10-PCS; 2020-05-06)
PROC: 0W8NXZZ Division of Female Perineum, External Approach (ICD-10-PCS; 2020-05-06)
DX: O48.0 Post-term pregnancy (principal); O69.81X0 Labor and delivery complicated by cord around neck, without compression, not applicable or unspecified; O71.82 Other specified trauma to perineum and vulva; Z3A.40 40 weeks gestation of pregnancy; Z37.0 Single live birth; O99.824 Streptococcus B carrier state complicating childbirth; D57.3 Sickle-cell trait
CPT/HCPCS: 36415; 59409; 80048; 85025; 85610; 85730; 86780; 86850; 86900; 86901; C9803; U0003

== ENCOUNTER 2020-08-04 10:33 | Emergency (ER) | payer OTHER | END 2020-08-04 13:25 | disposition home or self-care (01) | LOC: JVIRT 10:33 | DX: Z03.818 Encounter for observation for suspected exposure to other biological agents ruled out (principal) | CPT/HCPCS: Q3014-GT ==

== ENCOUNTER 2021-07-30 14:27 | Emergency (ER) | payer OTHER ==
[2021-07-30 14:49] VITALS: BP 137/82; PULSE 97; TEMP 97.3; BMI 30.7
== END 2021-07-30 15:59 | disposition home or self-care (01) ==
LOC: JER 14:27
DX: R50.9 Fever, unspecified (principal)
CPT/HCPCS: 99283-25; C9803; U0003; U0005